=== PATIENT | male | born 1960 | race Two or more races ===

== ENCOUNTER 2022-03-11 18:35 | Emergency (ER) | payer OTHER, MEDICAID ==
[~2022-03-11] VITALS: Ht 167.6 cm; Wt 61.2 kg
[2022-03-11] MEDS ORDERED: CEPH-509 PO (20:23)
[2022-03-11 21:30] VITALS: BP 121/69
== END 2022-03-11 21:39 | disposition home or self-care (01) ==
LOC: ER 18:35
DX: I89.1 Lymphangitis (principal)